=== PATIENT | male | born 1995 | race Hispanic/Latino ===

== ENCOUNTER → 2016-06-28 | Outpatient (CLI) | payer OTHER ==
--- NOTE | 2016-06-28 08:52 | REP ---
CT IACS WITHOUT CONTRAST: HISTORY: Bilateral otalgia. The internal auditory canals, cochlea, vestibules and semicircular canals are normal in appearance. The ossicles are normal in configuration and position. The scutum and tegmen are intact. The middle ear cavities and mastoid air cells are clear. Minimal mucosal thickening is present in the right ethmoid sinus. The nasopharynx is normal in appearance. IMPRESSION: Normal CT IACs. Signed by Pascual Rabago MD 06/28/2016 09:03 A
== END ==
LOC: M RAD 07:52
PROVIDERS: ATTEND Physician Assistant Medical
DX: H92.03 Otalgia, bilateral (principal)